=== PATIENT | male | born 2000 | race African-American/Black ===

== ENCOUNTER 2022-09-14 20:00 | Emergency (ER) | payer MEDICAID, SELFPAY ==
[2022-09-14] VITALS (24 sets, daily range): BP systolic 105–139; BP diastolic 53–98; PULSE 74–92; RESP 16; TEMP 36.4; O2SAT 96–100
--- NOTE | 2022-09-14 20:26 | ED_ITS ---
HPI - Overdose General Chief Complaint: Overdose Stated Complaint: Pain all over body, Itchy all over Time Seen by Provider: 09/14/22 20:20 History of Present Illness HPI Narrative: Pt is a 22 year old gentleman who is a polysubstance abuser who presents via cab immediately after overdosing on Fentanyl via pipe. Pt was revived by his sister with intranasal Fentanyl. Pt awoke and now feels anxious. Pt has no chest pain or shortness of breath. He has been using Fentanyl regularly but also smokes marijuana and nasal cocaine. Pt states that he was not trying to kill himself just using the Fentanyl recreationally. Pt has no other complaints. Review of Systems Status of ROS: Reports: 10 or more systems reviewed and unremarkable except as noted in History and below [facility] Medical History (Updated 09/14/22 @ 23:09 by Marlon Bhatt MD) Polysubstance abuse ?F19.10 - Other psychoactive substance abuse, uncomplicated (ICD-10) Exam Narrative: Exam Narrative: EXAM GENERAL: Patient appears anxious EYES: No scleral icterus. THYROID: no thyroid nodules or thyromegaly. LYMPH: No supraclavicular or cervical lymphadenopathy. SKIN: Visible skin seen during exam normal or with benign process only. EXT: No dependent lower extremity pedal edema. HEART: Regular rate and rhythm with no murmurs, rubs, or gallops. LUNGS: Clear to auscultation bilaterally with no crackles or wheezes. ABD: Soft, non tender, non distended. PSYCH: Good eye contact, speech is not pressured. Const: Vital Signs, click to edit/add: Vital Signs - 24 hr 09/14/22 20:16 Temperature 97.6 F Pulse Rate [Left P ulse Oximeter] 79 Respiratory Rate 16 Blood Pressure [Ri ght Upper Arm] 128/98 H Pulse Oximetry 98 Oxygen Delivery Me thod Room Air Course Course Hospital Course: CBC CMP ETOH tox screen ordered as well as Tylenol salicylates. Poison control contacted. Reevaluation(s) Reevaluation #1: Pt resting comfortably. Time: 23:04 Vital Signs Vital signs: Initial Vital Signs Temperature 97.6 F 09/14/22 20:16 Temperature Source Temporal Artery Scan 09/14/22 20:16 Pulse Rate 79 09/14/22 20:16 Pulse Rhythm Regular 09/14/22 20:16 Respiratory Rate 16 09/14/22 20:16 Blood Pressure 128/98 H 09/14/22 20:16 Blood Pressure Mean 108 09/14/22 20:16 Pulse Oximetry 98 09/14/22 20:16 Oxygen Delivery Method Room Air 09/14/22 20:16 Vital Signs Temperature 97.6 F 09/14/22 20:16 Pulse Rate 79 09/14/22 20:16 Respiratory Rate 16 09/14/22 20:16 Blood Pressure 128/98 H 09/14/22 20:16 Pulse Oximetry 98 09/14/22 20:16 Oxygen Delivery Method Room Air 09/14/22 20:16 Temperature 97.6 F 09/14/22 20:16 Pulse Rate 79 09/14/22 20:16 Respiratory Rate 16 09/14/22 20:16 Blood Pressure 128/98 H 09/14/22 20:16 Pulse Oximetry 98 09/14/22 20:16 Oxygen Delivery Method Room Air 09/14/22 20:16 MDM - Overdose MDM Narrative Medical decision making narrative: Pt is a 22 year old gentleman who unfortunately has a history of polysubstance abuse. Pt overdose inadvertently on smoked Fentanyl tonight and was treated at home with intranasal narcan. Pt arrives with an unremarkable exam and vitals. Poison control was contacted. 4 hours of observation per Poison control. Pt's labs are fine. He does not produce a urine sample. Pt discharged to home with PCP and drug treatment follow up recommended. Differential Diagnosis Differential diagnosis: Likely cocaine intoxication, poisoning by opiate or related narcotic, drug overdose, acetaminophen overdose and accidental drug ingestion Lab Data Labs: Lab Results 09/14/22 Range/Units 20:35 WBC 6.98 (4.50-11.00) K/uL RBC 4.94 (4.30-5.90) m/uL Hgb 14.8 (13.5-17.5) gm/dL Hct 44.3 (37.0-53.0) % MCV 90 (80-100) fL MCH 30 (26-34) pg MCHC 33 (32-36) gm/dL RDW Coeff of Shanti 13.1 (11.5-15.5) % Plt Count 254 (140-440) K/uL Neut % (Auto) 53.4 (42.0-72.0) % Lymph % (Auto) 30.5 (20-44) % [place] % (Auto) 12.5 H (0.0-11.0) % Eos % (Auto) 3.2 (0.0-7.0) % Baso % (Auto) 0.4 (0.0-3.0) % Neut # (Auto) 3.73 (1.7-7.0) K/uL Lymph # (Auto) 2.13 (0.90-2.90) K/uL [place] # (Auto) 0.90 (0.00-0.90) K/UL Eos # (Auto) 0.22 (0.00-0.50) K/uL Baso # (Auto) 0.03 (0.00-0.30) K/uL Sodium 141 (135-149) mmol/L Potassium 3.6 (3.6-5.1) mmol/L Chloride 101 (96-114) mmol/L Carbon Dioxide 32 (20-32) mmol/L BUN 10 (5-24) mg/dL Creatinine 0.4 L (0.5-1.5) mg/dL Estimated GFR 160 ml/min Glucose 109 (60-115) mg/dL Calcium 9.4 (8.4-10.6) mg/dL Total Bilirubin 0.6 (0.1-1.5) mg/dL AST 27 (12-35) U/L ALT 30 (4-50) U/L Alkaline Phosphatase 76 (40-150) U/L Total Protein 8.0 (6.0-8.3) g/dL Albumin 4.8 (3.3-5.0) g/dL Salicylates < 1.0 L (1.0-10) mg/dL Acetaminophen < 10.0 L (10.0-30.0) ug/mL Ethyl Alcohol < 0.01 L (0.01-0.03) % Discharge Plan Discharge Clinical Impression: Drug overdose Patient Disposition: Home, Self-Care Condition: Stable Instructions: Adult Overdose (ED) Additional Instructions: Primary Care follow up to discuss drug abuse treatment Activity Level: No Restrictions Discharge Diet: Regular Stand Alone Forms: [facility] Info Instructions
--- NOTE | 2022-09-14 20:27 | ED.NURSE ---
Poison control called. Recommended 4 hour observation. Treat with Narcan as needed.
[2022-09-14 20:50] LABS: Basophils Absolute Auto 0.03 K/uL (0.00-0.30); Basophils Percent Auto 0.4 % (0.0-3.0); Eosinophils Absolute Auto 0.22 K/uL (0.00-0.50); Eosinophils Percent Auto 3.2 % (0.0-7.0); Hematocrit 44.3 % (37.0-53.0); Hemoglobin* 14.8 gm/dL (13.5-17.5); Lymphocytes Absolute Auto 2.13 K/uL (0.90-2.90); Lymphocytes Percent Auto 30.5 % (20-44); Mean Corpuscular HGB Conc 33 gm/dL (32-36); Mean Corpuscular Hemoglobin 30 pg (26-34); Mean Corpuscular Volume 90 fL (80-100); Monocytes Percent Auto 12.5 % (0.0-11.0); Neutrophils Absolute Auto 3.73 K/uL (1.7-7.0); Neutrophils Percent Auto 53.4 % (42.0-72.0); Platelet Count* 254 K/uL (140-440); RDW Coefficient of Variation % 13.1 % (11.5-15.5); Red Blood Count 4.94 m/uL (4.30-5.90); White Blood Count* 6.98 K/uL (4.50-11.00)
[2022-09-14] MEDS: 0.9 % SODIUM CHLORIDE 1000 ml 1,000 ML IV (20:50)
[2022-09-14 20:55] LABS: Slide Review Reflex No
[2022-09-14 21:02] LABS: Albumin* 4.8 g/dL (3.3-5.0)
[2022-09-14 21:03] LABS: Chloride* 101 mmol/L (96-114); Potassium* 3.6 mmol/L (3.6-5.1); Sodium* 141 mmol/L (135-149)
[2022-09-14 21:05] LABS: Alkaline Phosphatase* 76 U/L (40-150); Aspartate Amino Transferase* 27 U/L (12-35); Bilirubin Total* 0.6 mg/dL (0.1-1.5); Carbon Dioxide* 32 mmol/L (20-32); Creatinine* 0.4 mg/dL (0.5-1.5); Estimated Glomerular Filt Rate 160 ml/min
[2022-09-14 21:06] LABS: Alanine Aminotransferase* 30 U/L (4-50); Blood Urea Nitrogen* 10 mg/dL (5-24); Calcium* 9.4 mg/dL (8.4-10.6); Glucose* 109 mg/dL (60-115)
[2022-09-14 21:25] LABS: Acetaminophen* < 10.0 ug/mL (10.0-30.0); Ethanol* < 0.01 % (0.01-0.03); Salicylate* < 1.0 mg/dL (1.0-10)
== END 2022-09-15 00:21 | disposition home or self-care (01) ==
PROVIDERS: Emergency Provider Internal Medicine
DX: T40.414A Poisoning by fentanyl or fentanyl analogs, undetermined, initial encounter (principal)
CPT/HCPCS: 36415; 80053; 80143; 80179; 80306; 82077; 85025; 99283; J7030